=== PATIENT | female | born 2000 | race Caucasian/White ===

== ENCOUNTER 2023-11-21 11:57 | Outpatient (CLI) | payer BC, SELFPAY ==
--- NOTE | 2023-11-21 13:09 | W.ANESCHARGE ---
Anesthesia Charges Start Date/Time Anesthesia Start Date: 11/21/23 Anesthesia Start Time: 13:29 Stop Date/Time Anesthesia Stop Date: 11/21/23 Anesthesia Stop Time: 13:46
--- NOTE | 2023-11-21 13:49 | W.ANESCHARGE ---
Anesthesia Charges Start Date/Time Anesthesia Start Date: 11/21/23 Anesthesia Start Time: 13:29 Stop Date/Time Anesthesia Stop Date: 11/21/23 Anesthesia Stop Time: 13:46
== END 2023-11-21 11:58 | disposition home or self-care (01) ==
LOC: OP CLINIC 12:00
PROVIDERS: PCP Family Medicine; Visit Provider Internal Medicine Gastroenterology
DX: R10.13 Epigastric pain (principal); K22.89 Other specified disease of esophagus; K21.00 Gastro-esophageal reflux disease with esophagitis, without bleeding; R12 Heartburn
CPT/HCPCS: 00731; 43239; 88305; J2704

== ENCOUNTER 2024-09-18 18:39 | Emergency (ER) | payer BC, SELFPAY ==
--- OUTSIDE RECORDS SUMMARY | 2024-09-18 18:40 | XMS_ITS | Clinical Summary ---
Author Organization [facility] Address [address] [place] [id number] Care Team Providers Care Oracle Soa Developer Name Role Phone AldairVesta virgen MD Primary Care Provider Allergies Active Allergy Reactions Criticality Noted Date Comments Lactose GI Upset Unknown 09/15/2019 Medications doxycycline 100 mg capsule TAKE 1 CAPSULE BY MOUTH TWICE DAILY FOR 10 DAYS* 11/15/2023 Active predniSONE (DELTASONE) 20 mg tablet TAKE TWO TABLETS BY MOUTH DAILY for 5 days* 11/15/2023 Active benzonatate (TESSALON) 200 mg capsule TAKE ONE CAPSULE BY MOUTH THREE TIMES DAILY NEEDED FOR COUGH* 11/15/2023 Active omeprazole 40 mg Delayed-Release capsuleIndicati ons:Chronic GERD Take 1 Capsule (40 mg) by mouth once daily before a meal. 90 Capsule 07/20/2024 Active scopolamine 1 mg over 3 days patchIndication s:Motion sickness, initial encounter Apply 1 Patch on dry, clean, hairless skin every 72 hours. Remove old patch before applying new one. 5 Each 08/30/2024 Active Active Problems Problem Noted Date Diagnosed Date Pap smear for cervical cancer screening 11/14/19 Overview (11/13/2022): 09/2022 NIL Plan: pap/hpv due 09/2025 Morbid obesity with BMI of 50.0-59.9, adult 11/29 HTN (hypertension) 12/11/2020 Depression 12/11/2020 Arthritis - positive RA serology 03/22/2013 ADHD (attention deficit hyperactivity disorder) 05/31/2011 Anxiety state, unspecified 09/14/2009 Encounters Date Type Department Care Team Description 08/27/2024 Telephone [facility] [address] [facility] [place] [address] Vesta Quinteros MD Refill Request (scopolamine 1mg over 3 days (TRANSDERM SCOP) patch /) 07/20/2024 Telephone [facility] [address] [place] [address] Vesta Quinteros MD Refill Request (omeprazole (PRILOSEC) 40 mg Delayed-Release capsule/) from Last 3 Months Immunizations Immunization Administration Dates Next Due DTaP 10/14/2003, 0,1998,07/31,1998 HIB HbOC (HibTITER) 08/17/1999, 9,1998,05/03 HPV 9 (Gardasil 9) 12/11/2020,09/15/2019, 019 Hepatitis A (Peds) 10/07/2016,06/06/2015 Hepatitis B (Peds) 1998,1998, 999 Inactivated Polio Vaccine 10/14/2003,,1998,05/24 Influenza, IIV3 (Age 6-35 mos) 02/26/2012,2010 Influenza, IIV3 (Age >=3 years) 03/22/2013,03/05,02/28/2007 Influenza, IIV4 02/03/2022,,12/25/2015,06/05 Influenza, IIV4 (=>6mos) MDV 01/07/2020,12/09/19 18 Influenza, Whole Virus 01/19/2010 Influenza,CCIIV4 PRESERV FREE 12/05/2018 MENINGOCOCCAL VACCINE 2 VIAL 2MO-55YO (MENVEO) 06/06/2015,10/23/2010 MMR 10/14/2003,03/19/1999 Rotavirus, Unspecified 1998,1998 Td (Age >=7 Years) 12/11/2020 Tdap 10/23/2010 Varicella Vaccine 10/23/2010,03/19/1999 Family History Medical History Relation Name Comments Good Health Father Other Mother sensitive to da iry Heart Disease No Family History Relation Name Status Comments Father Mother Social History Tobacco Use Types Packs/Day Years Used Date Smoking Tobacco: Never Passive Smoke Exposure: Never Smokeless Tobacco: Never Tobacco Cessation:Counseling Given: Not Answered Comments:no exposure Alcohol Use Standard Drinks/Week Comments Yes 1 (1 standard drink = 0.6 oz pur e alcohol) PHQ-2 Answer Date Recorded PHQ-2 TOTAL SCORE 1 11/04/2022 Social Connections Answer Date Recorded Do you often feel lonely or isolated from those around you? 0 09/15/2023 Financial Resource Strain Answer Date R ecorded Difficulty of Paying Living Expenses 3 09/15/2023 Difficulty of Paying Living Expenses Not on file 09/15/2023 Food Insecurity Answer Date Recorded Do you worry your food will run out before you are able to buy more? 1 09/15/2023 Transportation Needs Answer Date Record ed Does lack of transportation keep you from medica l appointments? 1 09/15/2023 Does lack of transportation keep you from work, meetings or getting things that you need? 1 09/15/2023 Housing Stability Answer Date Recorded What is your housing situation today? 1 09/15/2023 Utilities Answer Date Recorded Do you have trouble paying f or utilities (for example, heat, electricity, water, phone)? 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 Gender Identity Not on file Sexual Orientation Not on file Obstetrics History Para Term AB IAB SAB Ectopic Multiple Livin g Live Births 0 0 0 0 0 0 0 0 0 0 Last Filed Vital Signs Vital Sign Reading Time Taken Comments Blood Pressure 139/85 11/17/2023 7:35 AM CDT Pulse 87 11/17/2023 7:35 AM CDT Temperature 36.7 C (98.1 F) 11/17/2023 7:00 AM CDT Respiratory Rate 18 09/13/2010 10:2 3 AM CDT Oxygen Saturation 95% 11/17/2023 7:00 AM CDT Inhaled Oxygen Concentration - - Weight 154.9 kg (341 lb 6.4 oz) 11/17/2023 7:00 AM CDT Height 166.4 cm (5' 5.5) 11/17/2023 7:00 AM CDT Body Mass Index 55.95 11/17/2023 7:00 AM CDT Plan of Treatment Upcoming Encounters Date Type Department Care Team (Late st Contact Info) Description 09/27/2024 7:00 AM CDT Office Visit [facility] [address] [place] [address] Vesta Quinteros MD [address] [place] [address] Health Maintenance Due Date Last Done Comments Depression screening for age 12+ 2010 COVID-19 vaccine series ( season) 2023 04/05/2021, 07/27/2020, 06/29/2020 BMI (ht and wt on same day) for age 18+ 11/16/2024 11/17/2023, 09/15/2023, 11/14/2022, Additional history exists Influenza Vaccine (Season Ended) 2024 02/03/2022, 12/11/2020, 01/07/2020, Additional history exists Pap test for age 21-65 10/17/2025 10/17/2022, 2019 Tetanus booster 12/11/2030 12/11/2020, 10/23/2010 Hepatitis B series for 19+ Completed 09/29, 1998, 1998 Tdap Completed 10/23/2010 HPV series for age 9-26 Completed 12/12/19 21, 09/15/2019, 04/08/2018 HIV for age 15-65 Completed 11/14/2022 Hepatitis C screening for age 18-79 Completed 11/14/2022 Pneumococcal series for age 6-49 Aged Out No longer eligible based on patient's age to complete this topic Procedures Procedure Name Priority Date/Time Associated Diagnosis Comments LC HIV-1/O/2, 4TH GENERATION Routine 11/14/2022 8:44 AM CDT Screening for HIV (human immunodeficiency virus) LC HCV ANTIBODY RFX TO QUANT PCR Routine 11/14/2022 8:44 AM CDT Need for hepatitis C screening test FLOWER GRADER THIN PREP PAP SCREEN IMAGED Routine 10/17/2022 8:30 AM CDT Cervical cancer screening from Last 3 Months or Most Recently Relevant to Health Maintenance Results * LC HCV ANTIBODY RFX TO QUANT PCR (11/14/2022 8:44 AM CDT) HCV Ab Non Reactive Non Reactive 11/17/2022 10:[address] [facility] ([facility] Blood BLOOD SPECIMEN / Unknown Venipuncture / Unknown 11/14/2022 8:44 AM CDT 11/14/2022 8:44 AM CDT Narrative [facility] ([facility]) - 11/17/2022 10:07 AM CDT Performed at: [address] [place] [address] [place] [id number] Insurance Office Supervisor: Gabriel Amezquita MD, Phone: [phone] us Vesta Quinteros MD LABORATORY Final R esult [facility] ([facility]) [address] [place], [place] [id number], * LC HIV-1/O/2, 4TH GENERATION (11/14/2022 8:44 AM CDT) Pathologist [facility] HIV Scr 4th Gen Non Reactive Non Reactive 11/17/2022 10:[address] [facility] ([facility]) Comment: HIV Negative HIV-1/HIV-2 antibodies and HIV-1 p24 antigen were NOT detected. There is no laboratory evidence of HIV infection. Blood BLOOD SPECIMEN / Unknown Venipuncture / Unknown 11/14/2022 8:44 AM CDT 11/14/2022 8:44 AM CDT Narrative [facility] ([facility]) - 11/17/2022 10:07 AM CDT Performed at: [address] [id number] Insurance Office Supervisor: Gabriel Amezquita MD, Phone: [phone] us Vesta Quinteros MD LABORATORY Final R esult [facility] ([facility]) [facility] [place] [address], * FLOWER GRADER THIN PREP PAP SCREEN IMAGED (10/17/2022 8:30 AM CDT) Case Report Gynecologic Cytology Report Case: [id number] Authorizing Provider: Vesta Quinteros MD Collected: 10/17/2022 0830 Ordering Location: [facility] Received: 10/17/2022 0907 Clinic First Screen: [place] Pathologist: Elizabeth Aguilar MD Specimen: FLOWER GRADER ThinPrep Vial Screening, Cervical 11/13/2022 10:54 AM CDT [facility] INTERPRETATION/ RESULT NEGATIVE FOR INTRAEPITHELIAL LESION OR MALIGNANCY (NIL) (none) 11/13/2022 10:54 AM CDT [facility]-C ENTRAL LABORATORY at 1054 CDT OTHER NON-NEOPLASTIC FINDING(S) Reactive cellular changes associated with inflammation/repa ir 11/13/2022 10:54 AM CDT [facility]-C ENTRAL LABORATORY SPECIMEN ADEQUACY Satisfactory for evaluation Endocervical component present 11/13/2022 10:54 AM CDT [facility] Date of LMP 09/28/2022 11/13/2022 10:54 AM CDT [facility] LAB[facility]-C ENTRAL LABORATORY Last Pap Date 09/15/19 11/13/2022 10:54 AM CDT [facility] ENTRAL LABORATORY Last Pap Result NIL 10:54 AM CDT [facility] LAB[facility]-C ENTRAL LABORATORY Abnormal Pap or [place] Bx in last 5 years No 11/13/2022 10:54 AM CDT [facility] Menstrual Status Regular Periods 11/13/2022 10:54 AM CDT [facility] [place] Bx Done Today No 11/13/2022 10:54 AM CDT [facility] Additional Information None given 11/13/2022 10:54 AM CDT [facility] Comment: Cytology is screened at [facility] - [address], [place] [address] and [facility] - [address], [place] [address] and [facility] - [address] [place] [address] Interpreted at [facility] - [address], [place] [address] Automated Review Successful 11/13/2022 10:54 AM CDT [facility] Comment:Specimen processed s uccessfully by automated community administrator device, ThinPrep Imaging System, [employer] Note The pap test is a screening technique, not a diagnostic procedure. It is used primarily to screen for squamous cancers and precursor lesions. Published studies have shown that it is subject to both false negative and false positive results. The pap test should not be used as the sole means to diagnose or exclude pre-malignant and malignant lesions. 11/13/2022 10:54 AM CDT [facility] Other (Cervical) Non-Blood / Unknown 10/17/2022 8:30 AM CDT 10/17/2022 9:07 AM CDT us Vesta Quinteros MD PATHOLOGY/CYTOLOGY Adenike munoz Result [facility] [address] [place] [address], [place] from Last 3 Months or Most Recently Relevant to Health Maintenance Insurance [address] [place] [id number] [facility] [place] [id number] Care Teams Oracle Soa Developer Relationship Specialty Start Date End Date Vesta Quinteros [place] [address] PCP - General Family Practice 04/27/21
--- OUTSIDE RECORDS SUMMARY | 2024-09-18 18:40 | XMS_ITS | Clinical Summary ---
Author Organization [facility] Address [address] [place] [address] Care Team Providers Care Division Operations Manager Name Role Phone Provider, No Primary Primary Care Provider Unava ilable Allergies No known active allergies Medications cholecalciferol , Vitamin D3, (VITAMIN D3) 50,000 unit oral Capsule Take 50,000 Units by mouth every week. 08/24/2021 Active VIENVA 0.1-20 mg-mcg oral Tablet Take 1 Tablet by mouth in the morning. 11/12/2021 Active omeprazole (PRILOSEC) 20 mg oral Capsule, Delayed Release(E.C.) Take 20 mg by mouth in the morning and 20 mg in the evening. 11/12/2021 Active propranoloL (INDERAL LA) 80 mg oral Capsule, Sustained Action 24HR TAKE ONE CAPSULE BY MOUTH ONE TIME DAILY* 09/19/2022 Active Active Problems No known active problems Social History Tobacco Use Types Packs/Day Years Used Date Smoking Tobacco: Never Smokeless Tobacco: Never Depression (PHQ-9) Answer Date Recorded Last PHQ-9 Score Not on file 12/17/2021 Thoughts of self harm Not on file 12/17/2021 Comments No Sex and Gender Information Value Date Recorded Sex Assigned at Not on file Legal Sex Female 11:32 AM MARKET DEVELOPMENT SPECIALIST Gender Identity Not on file Sexual Orientation Not on file Last Filed Vital Signs Vital Sign Reading Time Taken Comments Blood Pressure 138/84 03/17/2023 9:34 AM MARKET DEVELOPMENT SPECIALIST Pulse 107 03/17/2023 9:34 AM MARKET DEVELOPMENT SPECIALIST Temperature 36.8 C (98.3 F) 03/17/2023 9:34 AM MARKET DEVELOPMENT SPECIALIST Respiratory Rate 18 03/17/2023 9:34 AM MARKET DEVELOPMENT SPECIALIST Oxygen Saturation 99% 03/17/2023 9:34 AM MARKET DEVELOPMENT SPECIALIST Inhaled Oxygen Concentration - - Weight 146.1 kg (322 lb) 11/27/2022 11:56 AM CDT Height 163.8 cm (5' 4.5) 11/27/2022 11:56 AM CD T Body Mass Index 54.42 11/27/2022 11:56 AM CDT Plan of Treatment Health Maintenance Due Date Last Done Comments Hepatitis C Testing 1998 Depression Screening 2010 HIV Screen 2013 Hepatitis B Vaccines (1 of 3 - 19+ 3-dose series) 2017 Cervical Cancer Screening 2019 COVID-19 Vaccine ( season) 2023 Influenza Vaccine (Season Ended) 2024 01/12/2023, 02/03/2022, 12/11/2020, Additional history exists DTaP/Tdap/Td Vaccines (4 - Td or Tdap) 12/11/2030 12/11/2020, 10/23/2010, 10/14/2003 Varicella Zoster Sequential (1 of 2) 2048 Respiratory Syncytial Virus (RSV) Vaccine (1 - 1-dose 75+ series) 2073 Meningococcal Vaccines Completed 06/06/2015, 2010 Hepatitis A Vaccines Completed 10/07/2016, 06/06/19 16 HPV Vaccines Completed 12/11/2020, 08/29, 04/08/2018 HIB Vaccines Aged Out No longer eligi ble based on patient's age to complete this topic Meningococcal B Vaccines Aged Out No longer eligible based on patient's age to complete this topic Pneumococcal Vaccine (0-49 Years) Aged Out No longer eligible based on patient's age to complete this topic Insurance [employer] Care Teams Division Operations Manager Relationship Specialty Start Date End Date Provider, No Primary . [place] G[place] [id number] PCP - General 12/17/21 Additional Source Comments PLEASE NOTE: Replies to this message will not be received.[facility] and [facility]
--- OUTSIDE RECORDS SUMMARY | 2024-09-18 18:40 | XMS_ITS | Referral Summary ---
Author Organization [employer] [facility] Address [address] [place] [address] Care Team Providers Care Radiologic Tech Name Role Phone Provider, No Primary Primary [...] on file Legal Sex Female 11:32 AM TOBACCO WAREHOUSE MANAGER Gender Identity Not on file Sexual Orientation Not on file Last Filed Vital Signs Vital Sign Reading Time Taken Comments Blood Pressure 138/84 03/17/2023 9:34 AM TOBACCO WAREHOUSE MANAGER Pulse 107 03/17/2023 9:34 AM TOBACCO WAREHOUSE MANAGER Temperature 36.8 C (98.3 F) 03/17/2023 9:34 AM TOBACCO WAREHOUSE MANAGER Respiratory Rate 18 03/17/2023 9:34 AM TOBACCO WAREHOUSE MANAGER Oxygen Saturation 99% 03/17/2023 9:34 AM TOBACCO WAREHOUSE MANAGER Inhaled Oxygen Concentration - - Weight 146.1 kg (322 lb) 11/27/2022 11:56 AM CDT Height 163.8 cm (5' 4.5) 11/27/2022 11:56 AM CD T Body Mass Index 54.42 11/27/2022 11:56 AM CDT Functional Status * Are you deaf or do you have serious difficulty hearing? Answer Date of Assessment Author No 12/17/2021 6:33 PM CDT Galina Jerome RN * Are you blind or do you have serious difficulty seeing, even when wearing glasses? Answer Date of Assessment Author No 12/17/2021 6:33 PM CDT Galina Jerome RN * Do you have serious difficulty walking or climbing stairs? Answer Date of Assessment Author No 12/17/2021 6:33 PM CDT Galina Jerome RN * Do you have difficulty doing errands alone such as visiting a doctor's office or shopping because of a physical, mental, or emotional condition? Answer Date of Assessment Author No 12/17/2021 6:33 PM CDT Galina Jerome RN Mental Status * Do you have trouble concentrating, remembering, or making decisions because of a physical, mental, or emotional condition? Answer Entry Date Author No 12/17/2021 6:33 PM JOSEFINAT Galina Jerome RN Plan of Treatment Not on file Insurance [employer] Care Teams Radiologic Tech Relationship Specialty Start Date End Date Provider, No Primary . MARQUEZ GONZALES [id number] PCP - General 12/17/21 Additional Source Comments PLEASE NOTE: Replies to this message will not be received.[facility] and [facility]
[2024-09-18 18:46] VITALS: BP 149/107; PULSE 97; RESP 20; TEMP 36.7; O2SAT 96; BMI 55.7
--- NOTE | 2024-09-18 19:13 | CRLHL7_ITS ---
For Patients: As a result of the Century Cures Act, medical imaging exams and procedure reports are released immediately into your electronic medical record. You may view this report before your referring provider. If you have questions, please contact your health care provider. INDICATION: Chest pain/palpitations. TECHNIQUE: Chest 2 views. COMPARISON: None. FINDINGS: Cardiovascular and mediastinum: Heart size and vasculature are normal in caliber and appearance. Lungs and pleural spaces: No focal consolidation, pleural effusion, or pneumothorax. Bones and soft tissues: Unremarkable for age. IMPRESSION: No evidence of an acute pulmonary process. Dictated by Gerber Sousa MD @ 09/18/2024 8:02:40 PM (Electronically Signed)
[2024-09-18 20:26] LABS: PCR FLU A Negative PCR FLU A (Negative); PCR FLU B Negative PCR FLU B (Negative); PCR RSV Negative PCR RSV (Negative); SARS PCR* Negative SARS-CoV-2 (Negative)
[2024-09-18 20:34] LABS: Basophils Absolute Auto 0.03 K/uL (0.00-0.30); Basophils Percent Auto 0.3 % (0.0-3.0); Eosinophils Absolute Auto 0.07 K/uL (0.00-0.50); Eosinophils Percent Auto 0.7 % (0.0-7.0); Hematocrit 46.6 % (33.0-51.0); Hemoglobin* 15.5 gm/dL (12.0-16.0); Immature Granulocytes Abs Auto 0.01 K/uL (0.00-0.30); Immature Granulocytes Pct Auto 0.1 %; Lymphocytes Absolute Auto 3.01 K/uL (0.90-2.90); Lymphocytes Percent Auto 32.2 % (20-44); Mean Corpuscular HGB Conc 33 gm/dL (32-36); Mean Corpuscular Hemoglobin 29 pg (26-34); Mean Corpuscular Volume 88 fL (80-100); Monocytes Percent Auto 7.1 % (0.0-11.0); Neutrophils Absolute Auto 5.57 K/uL (1.7-7.0); Neutrophils Percent Auto 59.6 % (42.0-72.0); Platelet Count* 275 K/uL (140-440); RDW Coefficient of Variation % 12.6 % (11.5-15.5); Red Blood Count 5.31 m/uL (4.00-5.20); White Blood Count* 9.35 K/uL (4.50-11.00)
[2024-09-18 20:38] LABS: Slide Review Reflex No
[2024-09-18 20:48] LABS: Chloride* 100 mmol/L (96-114); Sodium* 138 mmol/L (135-149)
[2024-09-18 20:49] LABS: Potassium* 3.8 mmol/L (3.6-5.1)
[2024-09-18 20:50] VITALS: BP 125/85; PULSE 90; RESP 20; TEMP 36.7; O2SAT 96
[2024-09-18 20:50] LABS: D Dimer Quantitative* < 0.27 ug/ml (0.00-0.50)
[2024-09-18 20:51] LABS: Anion Gap 9 mEq/L (7-15); Blood Urea Nitrogen* 11 mg/dL (5-24); Carbon Dioxide* 29 mmol/L (20-32); Creatinine* 0.9 mg/dL (0.5-1.5); Est. Creatinine Clearance* 85.24; Estimated Glomerular Filt Rate 90 ml/min
[2024-09-18 20:52] LABS: Calcium* 9.1 mg/dL (8.4-10.6); Glucose* 88 mg/dL (60-115); Magnesium* 2.2 mg/dL (1.5-2.6)
--- NOTE | 2024-09-18 20:59 | ED.GENADULT ---
HPI - General Adult General Date Seen: 09/18/24 Chief complaint: Hypertension Stated complaint: High blood pressure, High heart rate Time Seen by Provider: 09/18/24 19:05 Source: patient Mode of arrival: ambulatory Limitations: no limitations History of Present Illness HPI narrative: Patient is a 24-year-old female presenting to the emergency department for multiple complaints. She states for several months now she will have intermittent anxiety, lightheadedness, chest pain, shortness of breath. She states over the past week while she was on a cruise out of [place] she has been having worsening symptoms. She states there are times where she had very anxious feel like she is going to pass out. States she will get associated chest pain and shortness of breath but always seems to occur after she is already feeling anxiety. She states the symptoms may all be from anxiety but she is very concerned wants rule out anything bad. She has no history of blood clots but is on hormonal control. No history of cancer, recent surgeries, lower extremity swelling. She has no history of heart disease. Denies any symptoms at this time. Also noted she was hypertensive. Last saw her primary care provider 1 year ago. Denies any dizziness. Will get intermittent blurry vision but this goes along with the lightheadedness and has also been going on for several months. Denies abdominal pain, headache, diarrhea, constipation, dysuria, weakness, numbness. Related Data Home Medications ?Medication ?Instructions ?Recorded ?Confirmed omeprazole 40 mg capsule,delayed 40 mg PO DAILY 09/18/24 09/18/24 release Allergies Allergy/AdvReac Type Severity Reaction Status Date / Time lactose Allergy Verified 08/29/24 11:24 Review of Systems Status of ROS: Reports: 10 or more systems reviewed and unremarkable except as noted in History and below [facility] Social History Smoking Status: Never smoker Second hand tobacco smoke exposure: No How often do you have a drink containing alcohol: never AUDIT-C Alcohol total score: 0 Non-prescribed substance use: denies use Exam Narrative: Exam Narrative: Const: Well-nourished, Well-developed, in no distress Eyes: PERRL, no conjunctival injection, and symmetrical lids HENT: Atraumatic external nose and ears. Moist mucous membranes. Neck: Symmetric, trachea midline, No thyromegaly. CVS: RRR, No murmurs or gallops. Peripheral pulses 2+ and equal in all extremities RESP: Unlabored respiratory effort. Clear to auscultation bilaterally. GI: Nontender/Nondistended, No rebound or guarding. MSK:Extremities w/o deformity, Normal Active ROM Skin: Warm, Dry. No rashes or lesions. Neuro: Normal Muscle tone, No focal neurological deficits. Psych: Awake, Alert, & Oriented x3. Appropriate mood and affect. Const: Vital Signs, click to edit/add: Vital Signs - 24 hr 09/18/24 18:46 Temperature 98.1 F Pulse Rate [Pulse Oximeter] 97 Respiratory Rate 20 Blood Pressure [Ri ght Upper Arm] 149/107 H Pulse Oximetry 96 Oxygen Delivery Me thod Room Air Course Vital Signs Vital signs: Initial Vital Signs Temperature 98.1 F 09/18/24 18:46 Temperature Source Temporal Artery Scan 09/18/24 18:46 Pulse Rate 97 09/18/24 18:46 Respiratory Rate 20 09/18/24 18:46 Blood Pressure 149/107 H 09/18/24 18:46 Blood Pressure Mean 121 H 09/18/24 18:46 Blood Pressure Position Sitting 09/18/24 18:46 Pulse Oximetry 96 09/18/24 18:46 Oxygen Delivery Method Room Air 09/18/24 18:46 Vital Signs Temperature 98.1 F 09/18/24 18:46 Pulse Rate 97 09/18/24 18:46 Respiratory Rate 20 09/18/24 18:46 Blood Pressure 149/107 H 09/18/24 18:46 Pulse Oximetry 96 09/18/24 18:46 Oxygen Delivery Method Room Air 09/18/24 18:46 Temperature 98.1 F 09/18/24 18:46 Pulse Rate 97 09/18/24 18:46 Respiratory Rate 20 09/18/24 18:46 Blood Pressure 149/107 H 09/18/24 18:46 Pulse Oximetry 96 09/18/24 18:46 Oxygen Delivery Method Room Air 09/18/24 18:46 Medical Decision Making MDM Narrative Medical decision making narrative: Patient is 24-year-old female presenting to the emergency department for multiple complaints. Symptoms seem to be all anxiety related with her lightheadedness, intermittent chest pain, intermittent shortness of breath I will do a workup to rule out pulmonary embolism, pneumonia, pneumothorax, ACS, arrhythmia S. Will order BMP, CBC, viral swabs, D-dimer, troponin, EKG, chest x-ray. EKG shows no acute concerning abnormalities. Chest x-ray reviewed by myself the radiologist shows no concerning findings. Lab work shows no acute concerning abnormalities. D-dimer within normal limits. Viral swabs are normal. Troponin within normal limits. Concerning like the symptoms are not believe repeat troponin is necessary. At this time it seems like his symptoms are most likely related to anxiety. I did inform her have close follow-up with her primary care provider. She is agreeable to this plan Lab Data Labs: Lab Results 09/18/24 09/18/24 Range/Units 19:13 20:10 WBC 9.35 (4.50-11.00) K/uL RBC 5.31 H (4.00-5.20) m/uL Hgb 15.5 (12.0-16.0) gm/dL Hct 46.6 (33.0-51.0) % MCV 88 (80-100) fL MCH 29 (26-34) pg MCHC 33 (32-36) gm/dL RDW Coeff of Carolyn 12.6 (11.5-15.5) % Plt Count 275 (140-440) K/uL Neut % (Auto) 59.6 (42.0-72.0) % Lymph % (Auto) 32.2 (20-44) % Finney % (Auto) 7.1 (0.0-11.0) % Eos % (Auto) 0.7 (0.0-7.0) % Baso % (Auto) 0.3 (0.0-3.0) % Neut # (Auto) 5.57 (1.7-7.0) K/uL Lymph # (Auto) 3.01 H (0.90-2.90) K/uL Finney # (Auto) 0.70 (0.00-0.90) K/UL Eos # (Auto) 0.07 (0.00-0.50) K/uL Baso # (Auto) 0.03 (0.00-0.30) K/uL Abs Immat Gran (auto) 0.01 (0.00-0.30) K/uL Imm/Tot Granulo (auto) 0.1 % D-Dimer Quant (PE/DVT) < 0.27 (0.00-0.50) ug/ml Sodium 138 (135-149) mmol/L Potassium 3.8 (3.6-5.1) mmol/L Chloride 100 (96-114) mmol/L Carbon Dioxide 29 (20-32) mmol/L Anion Gap 9 (7-15) mEq/L BUN 11 (5-24) mg/dL Creatinine 0.9 (0.5-1.5) mg/dL Estimated Creat Clear 85.24 Estimated GFR 90 ml/min Glucose 88 (60-115) mg/dL Calcium 9.1 (8.4-10.6) mg/dL Magnesium 2.2 (1.5-2.6) mg/dL Troponin I < 0.01 (0.01-0.04) ng/mL SARS-CoV-2 (PCR) Negative SARS-CoV-2 (Negative) Influenza Type A (PCR) Negative PCR FLU A (Negative) Influenza Type B (PCR) Negative PCR FLU B (Negative) RSV (PCR) Negative PCR RSV (Negative) Imaging Data Chest x-ray: Attestation: I have reviewed the pertinent imaging results. Radiologist's impression: No evidence of an acute pulmonary process. Dictated by Gerber Sousa MD @ 09/18/2024 8:02:40 PM ECG Data Attestation: I personally reviewed and interpreted this ECG as follows: Prior ECG tracings: not available for review Interpretation: Normal sinus rhythm with a rate of 89 beats per minute, normal intervals, normal axis, no ST or T-wave abnormalities. Discharge Plan Discharge Clinical Impression: Light-headedness Patient Disposition: Home, Self-Care Condition: Stable Instructions: Lightheadedness (ED) Additional Instructions: If symptoms some consistent with lightheadedness. This is a different process than vertigo. It could be related to your anxiety but I do recommend having close follow-up with your primary care provider. Prescriptions: No Action omeprazole 40 mg capsule,delayed release(DR/EC) 40 mg PO DAILY Follow Up/Referrals: Vesta Quinteros MD [Primary Care Provider, Family Practice] Stand Alone Forms: [employer] Info Instructions
[2024-09-18 21:09] LABS: Troponin I* < 0.01 ng/mL (0.01-0.04)
[2024-09-18 21:28] VITALS: BP 135/85; PULSE 94; RESP 20; TEMP 36.7; O2SAT 96
[2024-09-18 21:31] VITALS: BP 135/85; PULSE 94; RESP 20; TEMP 36.7
== END 2024-09-18 21:31 | disposition home or self-care (01) ==
PROVIDERS: Emergency Provider Student in an Organized Health Care Education/Training Program; PCP Family Medicine
DX: R42 Dizziness and giddiness (principal)
CPT/HCPCS: 36415; 71046; 80048; 83735; 84484; 85025; 85379; 87631; 93005; 99284

== ENCOUNTER 2024-09-21 09:54 | Emergency (ER) | payer BC, SELFPAY ==
--- OUTSIDE RECORDS SUMMARY | 2024-09-21 10:23 | XMS_ITS | Referral Summary ---
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 MARQUEZ GONZALES [id number] PCP - General 12/17/21 Additional Source Comments PLEASE NOTE: Replies to this message will not be received.[facility] and [facility]
--- OUTSIDE RECORDS SUMMARY | 2024-09-21 10:23 | XMS_ITS | Clinical Summary ---
Author Organization [employer] [facility] Address [address] [place] [address] Care Team Providers Care Retina Subspecialist Name Role Phone Provider, No Primary Primary [...] on file Legal Sex Female 11:32 AM REHAB CONSULTANT Gender Identity Not on file Sexual Orientation Not on file Last Filed Vital Signs Vital Sign Reading Time Taken Comments Blood Pressure 138/84 03/17/2023 9:34 AM REHAB CONSULTANT Pulse 107 03/17/2023 9:34 AM REHAB CONSULTANT Temperature 36.8 C (98.3 F) 03/17/2023 9:34 AM REHAB CONSULTANT Respiratory Rate 18 03/17/2023 9:34 AM REHAB CONSULTANT Oxygen Saturation 99% 03/17/2023 9:34 AM REHAB CONSULTANT Inhaled Oxygen Concentration - - Weight 146.1 [...] complete this topic Insurance MEDICA Care Teams Retina Subspecialist Relationship Specialty Start Date End Date Provider, No Primary . MARQUEZ GONZALES [id number] PCP - General 12/17/21 Additional Source Comments PLEASE NOTE: Replies to this message will not be received.[facility] and [facility]
--- OUTSIDE RECORDS SUMMARY | 2024-09-21 10:23 | XMS_ITS | Clinical Summary ---
Author Organization [employer] [facility] Address [address] [place] [id number] Care Team Providers Care Bar Machine Operator Production Name Role Phone AldairVesta virgen MD Primary [...] Encounters Date Type Department Care Team Description 09/21/2024 Nurse Triage [facility] [address] [place] [address] Vesta Quinteros MD Blurred Vision; Chest Pain 09/18/2024 Orders Only [facility] Scanner 1 scan: (1-Ord) [facility], CHEST 2VIEWS, 09/18/2024 08/27/2024 Telephone [facility] [address] [place] [address] Vesta Quinteros MD Refill Request (scopolamine 1mg over 3 days (TRANSDERM SCOP) patch /) 07/20/2024 Telephone [facility] [address] [place] [address] Vesta Quinteros MD Refill Request (omeprazole (PRILOSEC) 40 mg Delayed-Release capsule/) from Last 3 Months Immunizations Immunization Administration Dates Next Due DTaP 10/14/2003, 0,1998,07/31,1998 HIB HbOC (HibTITER) 08/17/1999,199 9,1998,05/03 HPV 9 (Gardasil 9) 12/11/2020,09/15/2019, 019 [...] on file Legal Sex Female 7:26 AM WILDERNESS GUIDE Gender Identity Not on file Sexual Orientation [...] Description 09/27/2024 7:00 AM CDT Office Visit [facility] [address] [place] [address] Vesta Quinteros MD [address] [place] [address] Health Maintenance Due Date Last Done Comments [...] Procedure Name Priority Date/Time Associated Diagnosis Comments SCAN-RADIOLOGY REPORT 09/18/2024 12:00 AM CDT LC HIV-1/O/2, 4TH GENERATION Routine 11/14/2022 8:44 AM CDT Screening for HIV (human immunodeficiency virus) LC HCV ANTIBODY RFX TO QUANT PCR Routine 11/14/2022 8:44 AM CDT Need for hepatitis C screening test DERRICK HAND THIN PREP PAP SCREEN IMAGED Routine 10/17/2022 8:30 AM CDT Cervical cancer screening from Last 3 Months or Most Recently Relevant to Health Maintenance Results * SCAN-RADIOLOGY REPORT (09/18/2024 12:00 AM CDT) Anatomical Region Laterality Modality Other us Scanner OTHER Final Result * LC HCV ANTIBODY RFX TO QUANT PCR (11/14/2022 8:44 AM CDT) HCV Ab Non Reactive Non Reactive 11/17/2022 10:[address] [facility] Blood BLOOD SPECIMEN / Unknown Venipuncture / Unknown 11/14/2022 8:44 AM CDT 11/14/2022 8:44 AM CDT Narrative [facility] ([facility]) - 11/17/2022 10:07 AM CDT Performed at: [address] [place] [address] [place] [id number] Grades 9 Thru 12 Visiting Teacher: Gabriel Amezquita MD, Phone: [phone] us Vesta Quinteros MD LABORATORY Final R esult [facility] ([facility]) [address] [place] [id number], [place] * LC HIV-1/O/2, 4TH GENERATION (11/14/2022 8:44 AM CDT) HIV Scr 4th Gen Non Reactive Non Reactive 11/17/2022 10:07 AM CDT [facility] ([facility]) Comment: HIV Negative HIV-1/HIV-2 antibodies and HIV-1 p24 antigen were NOT detected. There is no laboratory evidence of HIV infection. Blood BLOOD SPECIMEN / Unknown Venipuncture / Unknown 11/14/2022 8:44 AM CDT 11/14/2022 8:44 AM CDT Narrative [facility] ([facility]) - 11/17/2022 10:07 AM CDT Performed at: [address] [place] [id number] Grades 9 Thru 12 Visiting Teacher: Gabriel Amezquita MD, Phone: [phone] Vesta Quinteros MD LABORATORY Final R esult [facility] ([facility]) [address] [place] [address], * DERRICK HAND THIN PREP PAP SCREEN IMAGED (10/17/2022 8:30 AM CDT) Pathologist [facility] Case Report Gynecologic Cytology Report Case: [id number] Authorizing Provider: Vesta Quinteros MD Collected: 10/17/2022 0830 Ordering Location: [facility] Received: 10/17/2022 0907 Clinic First Screen: Lacey Bar Pathologist: Elizabeth Aguilar MD Specimen: DERRICK HAND ThinPrep Vial Screening, Cervical 11/13/2022 10:54 AM CDT [facility]AL [facility] INTERPRETATION/ RESULT NEGATIVE FOR INTRAEPITHELIAL LESION OR MALIGNANCY (NIL) (none) 11/13/2022 10:54 AM CDT [facility]- ENTRAL LAB[facility] at 1054 CDT OTHER NON-NEOPLASTIC FINDING(S) Reactive cellular changes associated with inflammation/repa ir 11/13/2022 10:54 AM CDT [facility] SPECIMEN ADEQUACY Satisfactory for evaluation Endocervical component present 11/13/2022 10:54 AM CDT [facility] Date of LMP 09/28/2022 11/13/2022 10:54 AM CDT [facility] Last Pap Date 09/15/19 11/13/2022 10:54 AM CDT [facility] Last Pap Result NIL 10:54 AM CDT [facility] Abnormal Pap or [place] Bx in last 5 years No 11/13/2022 10:54 AM CDT [facility] Menstrual Status Regular Periods 11/13/2022 10:54 AM CDT [facility] [place] Bx Done Today No 11/13/2022 10:54 AM CDT [facility] Additional Information None given 11/13/2022 10:54 AM CDT [facility] Comment: Cytology is screened at [facility] - [address], [place] [address] and [facility] - [address] [place] [address] and [facility] - [address] [place] [address] Interpreted at [facility] - [address], [place] [address] Automated Review Successful 11/13/2022 10:54 AM CDT [facility] Comment:Specimen processed s uccessfully by automated customer service specialist device, ThinPrep Imaging System, [employer] Note The pap test is a [...] and malignant lesions. 11/13/2022 10:54 AM CDT [facility] Other (Cervical) Non-Blood / Unknown 10/17/2022 8:30 AM CDT 10/17/2022 9:07 AM CDT Vesta Quinteros MD PATHOLOGY/CYTOLOGY Adenike munoz Result [facility] [address] [place] [address], [place] from Last 3 Months or Most Recently Relevant to Health Maintenance Insurance [address] [place] [id number] [facility] Care Teams Bar Machine Operator Production Relationship Specialty Start Date End Date Vesta Quinteros MD [facility] [id number] PCP - General Family Practice 04/27/21
[2024-09-21 10:24] VITALS: BP 142/83; PULSE 92; RESP 20; TEMP 36.2; O2SAT 99; BMI 55.6
== END 2024-09-21 11:33 | disposition left against medical advice (07) ==
PROVIDERS: PCP Family Medicine
DX: Z53.21 Procedure and treatment not carried out due to patient leaving prior to being seen by health care provider (principal)